=== PATIENT | female | born 1960 | race Caucasian/White ===

== ENCOUNTER 2018-04-03 06:27 | Day surgery (SDC) | payer BC ==
[2018-04-03] MEDS ORDERED: Ringers Lactate 1,000 ML IV ONE (06:33)
[2018-04-03] MEDS: OXYMETAZOLINE HCL 0.05% 30ML NAS ONE ×3 (06:40→06:55)
[2018-04-03] MEDS ORDERED: LIDOCAINE 1% W/EPI 1:100,000 MDV 50 ML VIAL ONE (07:06)
[2018-04-03] MEDS ORDERED: OXYMETAZOLINE HCL 0.05% 30ML NAS ONE (07:06)
[2018-04-03] MEDS ORDERED: EPINEPHRINE/PF 1 MG/ML AMP ONE (07:06)
[2018-04-03] MEDS ORDERED: FENTANYL CITR 100 MCG/2 ML ONE (07:10)
[2018-04-03] MEDS ORDERED: PROPOFOL 200 MG/20 ML VIAL IV ONE (07:10)
[2018-04-03] MEDS ORDERED: ROCURONIUM 50 MG/5 ML VIAL IV ONE (07:10)
[2018-04-03] MEDS ORDERED: LIDOCAINE 2% MPF 5 ML VIAL ONE (07:10)
[2018-04-03] MEDS ORDERED: MIDAZOLAM HCL 2 MG/2 ML INJ ONE (07:10)
[2018-04-03] MEDS ORDERED: NA CHLORIDE 0.9% 250 ML ONE (07:12)
[2018-04-03] MEDS ORDERED: DEXAMETHASONE 10 MG/ML VIAL ONE (07:51)
--- NOTE | 2018-04-03 07:52 | P.BOP ---
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
[2018-04-03] MEDS ORDERED: GLYCOPYRROLATE 0.2 MG/ML SYR ONE (07:53)
[2018-04-03] MEDS ORDERED: NEOSTIGMINE 1 MG/ML -5 ML SYRINGE ONE (07:55)
[2018-04-03] MEDS: MORPHINE 4 MG/ML SYR ONE ×2 (08:25→08:30)
[2018-04-03 08:42] VITALS: O2SAT 93
[2018-04-03] MEDS ORDERED: ONDANSETRON 4 MG/2 ML VIAL ONE (09:03)
[2018-04-03 09:21] VITALS: BP 129/71; TEMP 97.1
--- NOTE | 2018-04-03 11:25 | OP ---
Date of Procedure: 04/03/2018 Surgeon: Henny Alfonso MD Preoperative Diagnosis: Nasal polyp. Postoperative Diagnosis: Nasal polyp. Procedure: Bilateral nasal endoscopy with polypectomy. Indication For Procedure: Lesvia Guevara is a 58-year-old woman with a long-standing history of n kwasi cavity polyp. She previously underwent medical therapy including steroids, which resulted in te mporary improvement in her nasal obstruction and drainage. She underwent a CT scan, which demonstrat ed normal-appearing sinus cavity with polyps restricted to the nasal cavity. The patient did not fee l she would tolerate an office polypectomy and opted for the procedure under general anesthesia. Description Of Procedure In Detail: The patient was brought to the operating room. She was placed u nder general anesthesia via oral endotracheal tube. The head of bed was turned 90 degrees and a 0-de gree endoscope was used to perform a nasal endoscopy. The right nasal cavity was noted to be nearly completely blocked by a large polyp wedged between the septum and the inferior turbinate. After phot o documentation, a suction was used to explore and lift the polyp looking for the place of attachment . The polyp appeared to be attached to the head of the middle turbinate. A 90 degree Blakesley was used to grasp the attachment point and remove the bulk of the polyp. Residual polyps more superiorly were removed in a similar fashion. After removal of the polyp, the area was carefully inspected. T here was a small polyp on the septum, which was removed using the microdebrider. Afrin-soaked pledge ts were applied to aid in hemostasis and attention was turned to the left side. A 0-degree endoscope was used to perform a nasal endoscopy. The septum and inferior turbinate were unremarkable. There was a small polyp on the head of the left middle turbinate. Photo documentation was obtained. The m icrodebrider was then used to remove this small polyp. An Afrin-soaked pledget was applied to aid in hemostasis. After time for effect, the pledgets were removed. The area was inspected. There was n o significant bleeding, noted in the nasopharynx was suctioned. A XeroGel gel was folded and placed in the bilateral middle meatus and saturated with saline. The nasopharynx was thoroughly suctioned. The patient was returned to care of anesthesia for awakening, extubation in the operating room, whic h proceeded without difficulty. Specimens: Right nasal polyp. Disposition: The patient will be discharged home later today and follow up with Dr. Alfonso in 10-14 days for evaluation of healing and review of pathology results. ANKIT Voice ID: [id number] Report ID: [id number]
== END 2018-04-03 09:15 | disposition home or self-care (01) ==
LOC: OR 06:27
PROVIDERS: ATTEND Otolaryngology
PROC: 09B Ear, Nose, Sinus, Excision (ICD-10-PCS; principal; 2018-04-03 07:30)
DX: J33.0 Polyp of nasal cavity (principal); E66.01 Morbid (severe) obesity due to excess calories; Z68.41 Body mass index [BMI] 40.0-44.9, adult
CPT/HCPCS: 88304; J0171; J1100; J2250; J2405; J2710; J3010